=== PATIENT | female | born 1960 | race Caucasian/White ===

== ENCOUNTER → 2018-08-20 | Outpatient (CLI) | payer OTHER ==
--- NOTE | 2018-08-20 15:25 | CT ---
EXAMINATION TYPE: CT angio neck DATE OF EXAM: 08/20/2018 COMPARISON: None HISTORY: Vertigo, tremors CT DLP: 222.2 mGycm CONTRAST: CTA cervical carotids is performed with IV Contrast, patient injected with 65 mL of Isovue 370. Contrast CTA of the cervical carotids was performed 3-D reconstruction imaging obtained at a separate workstation. Right carotid system: Mild plaque is seen of the right common carotid artery. There is minimal plaqu e also noted at the carotid bulb. No significant diameter reduction appreciated. ECA is patent. Righ t vertebral artery appears unremarkable. Left carotid system: Mild plaque is seen of the left common carotid artery. There is minimal plaque also noted at the carotid bulb. No significant diameter reduction appreciated. ECA is patent. Left vertebral artery appears unremarkable. IMPRESSION: 1. No significant diameter reduction appreciated.
--- NOTE | 2018-08-20 15:38 | MR ---
EXAMINATION TYPE: MR angio head wo con DATE OF EXAM: 08/20/2018 COMPARISON: CTA neck earlier today. HISTORY: Vertigo, headaches, vertebrobasilar insufficiency TECHNIQUE: Time of flight images focusing on the [place] were performed without contrast.. 2-D and 3-D postprocessing imaging is performed on MRI scanner.. FINDINGS: There is codominant vertebral basilar system. Vertebral arteries are patent to basilar junc tion. There is no significant focal stenosis or aneurysmal change in the posterior circulation. There is hypoplastic left P1 segment with filling of P2 segment due to patent posterior communicating flip ry. There is patent right posterior communicating artery identified. Images of the anterior circulation show small caliber short but patent anterior communicating artery. There is no significant focal stenosis or aneurysmal change in the anterior circulation. IMPRESSION: No aneurysmal change or significant focal stenosis at level of [place] of [place]. Unremark able study.
--- NOTE | 2018-08-20 16:55 | MR ---
EXAMINATION TYPE: MR brain wo/w con DATE OF EXAM: 08/20/2018 COMPARISON: Prior MR brain 06/08/2018 from outside institution HISTORY: Vertigo, headaches, vertebrobasilar insufficiency TECHNIQUE: Multiplanar, multisequence images of the brain and brainstem is performed without and with IV contras t, utilizing 6 mL intravenous Gadavist . FINDINGS: Diffusion weighted images demonstrate no evidence of a recent infarct or other diffusion ab normality. There is no extra-axial fluid collection or significant interval change white matter sign al abnormality. The ventricular system and cisternal spaces are normal in size and appearance. The brain volume is age appropriate. Midline structures demonstrate normal morphology. The craniocervical junction appears within normal limits. Post contrast images demonstrate no abnormal enhancement. The dural venous sinuses appear pa tent. The visualized sinuses are clear and the globes are intact. IMPRESSION: Scattered nonspecific white matter demyelination likely represents sequela from hypertens ion, migraine headaches or possibly small vessel ischemia.
== END | disposition home or self-care (01) ==
LOC: RADMRIMAIN 14:24
PROVIDERS: ATTEND Psychiatry & Neurology Neurology
DX: G37.9 Demyelinating disease of central nervous system, unspecified (principal); R42 Dizziness and giddiness; R25.1 Tremor, unspecified; G45.0 Vertebro-basilar artery syndrome
CPT/HCPCS: 70498; 70544; 70553; A9585; Q9967